=== PATIENT | male | born 1955 | race Caucasian/White ===

== ENCOUNTER 2016-08-02 10:00 | Inpatient (IN) | payer OTHER ==
--- NOTE | 2016-10-10 09:33 | HP ---
DATE OF ADMISSION: 10/19/2016 DATE OF DICTATION: 05/04/2016 BRIEF HISTORY: This is a 60-year-old gentleman who underwent a robotic prostatectomy up at [place]. Since that surgery, the patient developed an incisional hernia at the extraction site and had this repaired. He then developed a 2nd incisional hernia at the repair. Both hernia repairs were performed in the same year (2013; the prostatectomy was performed in 2013 as well). Both hernia repairs were done with mesh. In 2007, the patient underwent a partial toe amputation by Dr. Vogel. ALLERGIES: PLAQUENIL. MEDICATIONS: Celebrex, Cymbalta, Crestor, Nexium, hydrocodone. SOCIAL HISTORY: Patient does not smoke nor drink. PHYSICAL EXAMINATION: Lungs: Clear. Heart: Regular rate and rhythm. Abdomen: Soft, nontender, nondistended. He has an upper midline diastasis from xiphoid to umbilicus. He has a large, chronically incarcerated ventral incisional hernia. The skin deep to the hernia is definitely thickened and you can feel the mesh ridge deep to this. The actual defects of this hernia are not truly appreciated due to its chronically incarcerated nature. The patient clearly has multiple scars in a transverse direction from his port sites. I suspect, according to this patient's history, that he had his ventral hernia repairs done robotically as well. IMPRESSION/PLAN: Chronically incarcerated large, complex, recurrent ventral incisional hernia: This is a 60-year-old gentleman who had a robotic prostatectomy in 2013. That same year, the patient had 2 hernia repairs with mesh from an incision performed at the robotic prostatectomy. The first repair broke down shortly after it was performed and now he has a recurrence. He now is here for his 3rd time to undergo repair. The patient and his and myself had a long conversation regarding the various approaches. It is my feeling to attempt to approach this in an open fashion with a retrorectus repair and a component separation as needed. He understands that his risks of recurrence are going to be significantly higher, given the findings for diastasis and being chronically treated for rheumatoid arthritis (immunosuppression). He also understands the risks of bowel injury at the time of this surgery, given his 2 meshes that have been placed, and that, if that should occur, he would not have a permanent repair with a permanent piece of mesh. He understands and still wants to proceed. The indications, alternatives, complications were discussed. Questions answered. Will plan to obtain written consent the day of surgery. Prior to surgical intervention, the patient will see a plastic surgeon to discuss concomitant abdominoplasty. ANDREA EUCEDA M.D. [id number] CC: Edward Ramachandran MD [address] [place] [address].
[2016-10-16 17:14] VITALS: BMI 27.3
[2016-10-19] MEDS ORDERED: TAMSULOSIN HCL 0.4 MG CAP.ER.24H (FP) ONE (06:50)
[2016-10-19] MEDS ORDERED: LIDOCAINE 1%-EPI 1:100,000 30 ML MDV IJ ONE (07:25)
[2016-10-19] MEDS ORDERED: GUM MASTIC/STORAX/MSAL/ALCOHOL 1 DRP DROPSBTL MC ONE (07:25)
[2016-10-19] MEDS ORDERED: DEXAMETHASONE SOD PHOSPHATE/PF 10 MG/ML SDV ONE (07:28)
[2016-10-19] MEDS ORDERED: MIDAZOLAM HCL 2 MG/2 ML SINGLE DOSE VIAL ONE (07:29)
[2016-10-19] MEDS ORDERED: BUPIVACAINE HCL/PF 2.5 MG/ML - 30 ML VIAL IJ ONE (07:29)
[2016-10-19] MEDS ORDERED: ONDANSETRON 4 MG/2 ML VIAL IVPB PRN (07:48)
[2016-10-19] MEDS ORDERED: ACETAMINOPHEN 325 MG TABLET (FP) PO PRN ×2 (07:48→12:12)
[2016-10-19] MEDS ORDERED: OXYCODONE/APAP 5/325MG COMBO TABLET PO PRN ×2 (07:48)
[2016-10-19] MEDS ORDERED: HYDROmorphone HCL CARPU-JECT 1 MG/1 ML DISP.SYRIN IVPB PRN (07:48)
[2016-10-19] MEDS ORDERED: PROPOFOL 20 ML ONE ×2 (08:07)
[2016-10-19] MEDS ORDERED: ROCURONIUM BROMIDE 50 MG/5 ML VIAL ONE ×3 (08:07→09:49)
[2016-10-19] MEDS ORDERED: SUCCINYLCHOLINE CHLORIDE 200 MG/10 ML VIAL ONE (08:07)
[2016-10-19] MEDS ORDERED: ceFAZolin SODIUM 1 GM VIAL ONE (08:22)
[2016-10-19] MEDS ORDERED: HYDROmorphone HCL/PF 1 MG/ML VIAL (FOR PYXIS CHARGING ONLY) ONE ×3 (08:29→11:25)
[2016-10-19] MEDS ORDERED: LIDOCAINE 1%/EPI 1:100000 (20 ML MULTI DOSE VIAL) INF ONE ×2 (08:43→11:00)
[2016-10-19] MEDS ORDERED: DEXAMETHASONE SOD PHOSPHATE 4 MG/1 ML VIAL ONE ×3 (08:56→12:57)
[2016-10-19] MEDS ORDERED: PATIENT'S OWN MEDICATION (NON-FORMULARY) (Mirabegron [Myrbetriq] 25 MG) PO SCH (10:00)
[2016-10-19] MEDS ORDERED: NEOSTIGMINE METHYLSULFATE 0.5 MG/ML - 10 ML MDV ONE (11:10)
[2016-10-19] MEDS ORDERED: GLYCOPYRROLATE 0.2 MG/1 ML VIAL ONE (11:11)
[2016-10-19] MEDS ORDERED: ONDANSETRON 4 MG/2 ML VIAL ONE ×2 (11:46→12:57)
[2016-10-19] MEDS ORDERED: oxyCODONE HCL 5 MG TABLET PO PRN ×2 (12:16→12:17)
--- NOTE | 2016-10-19 12:16 | OP ---
DATE OF OPERATION: 10/19/2016 PREOPERATIVE DIAGNOSIS: Recurrent, complex, chronically incarcerated ventral incisional hernia. POSTOPERATIVE DIAGNOSIS: Recurrent, complex, chronically incarcerated ventral incisional hernia, history of rheumatoid arthritis, depressive disorder, prostate cancer, hyperlipidemia. PROCEDURE: Repair of complex, chronically-incarcerated ventral incisional hernia; total abdominal wall reconstruction; bilateral posterior component separation; repair of abdominal wall with mesh. SURGEON: Joanthan Euceda MD JUNIOR LINUX ADMINISTRATOR: Jose Luis Lee DO ANESTHESIA: Chika Minor MD (general). ESTIMATED BLOOD LOSS: Minimal. SPECIMEN: None. INDICATION FOR PROCEDURE: This is a 61-year-old gentleman who underwent a robotic prostatectomy at [place]. Following that surgery, he developed an incisional hernia which subsequently then repaired that same year with mesh. That hernia recurred , and he had it repaired a second time with mesh. He now has progressive bulge and pain at the hernia repair site. On physical examination, he has a large, chronically incarcerated ventral incisional hernia (recurrent). The patient is symptomatic from this and wants to have this repaired. He is also concerned about the previous scars that were left, and therefore, he has opted to undergo a plastic surgery evaluation abdominoplasty concurrently. Please refer to Dr. Sharma's dictation for the abdominoplasty and reconstruction. DESCRIPTION OF PROCEDURE: The patient was identified early this morning. He underwent a placement of under ultrasound guidance by Anesthesia. He was then brought to the operating room and a Villagomez catheter placed. The abdomen was then prepped and draped in the usual sterile fashion with ChloraPrep. Dr. Sharma performed the initial exposure for the abdominal wall through his abdominoplasty incisions. Once this exposure was obtained, I then came into the operating room. Patient had previous mesh in his abdominal wall at the level of the hernia. It is very scarred and thickened. Options here were to enter the abdominal cavity or stay totally extraperitoneal. Given his multitude of surgeries, I have elected to stay extraperitoneal. The fascia was then scored around what appeared to be the actual defect along the patient's right rectus. In doing so, the right rectus muscle identified and then off the posterior sheath/hernia sac. The retrorectus space was then developed superiorly and inferiorly the length of the actual defect. This was then taken out laterally to the perforating vessels. At this point, examining the large defect this gentleman has, I felt it necessary to perform a right lateral posterior-component separation. The transversus was off the junction of the rectus and obliques at the level just medial to the perforating vessels. This was done up toward the ribcage and superiorly and down to level beyond the anterior iliac crests. Medially, the inferiorly, the patient's bladder was then mobilized off the anterior sheath, and this was taken down to the level of the pubis. Superiorly, the patient has a large upper midline diastasis, and the midline was by over an inch and a half. The insertion points on the right were divided sharply up toward the xiphoid. Once this was completed on the patient's right side, a similar technique was used on the left side, and the fascia of the left rectus was scored in a similar fashion. The muscles split. The retrorectus space entered and lifted anteriorly. The posterior rectus sheath/hernia was then off the rectus muscle bluntly superiorly and inferiorly. The superior dissection was taken to the level of the costal margin. The inferior dissection was then taken down to the level of the AIS. Given the retraction of the rectus muscle on this side as well and the defect, he required a component separation on this side as well to allow placement of a very large piece of mesh. The transversus was released from the obliques and rectus junction just medial to the perforating vessels. The lateral space was then entered and developed bluntly. Superiorly, it was taken over the costal margin and inferiorly down to the level of the anterior iliac crest medially. The 2 spaces were joined from the left, and the midline loose attachment was divided with the cautery as well. The operative field now irrigated and noted to be hemostatic. The attenuated fascia in the midline was then reapproximated with a running locking 3-0 PDS suture. The defect measured, and a large Phasix 25 x 30 and a large 30 x 30 soft mesh was used for the operative repair. The Phasix was anchored to the soft mesh with interrupted 3-0 Vicryl sutures. The mesh placed into the retrorectus space and then placed and fanned out laterally, superiorly, medially, and inferiorly under direct vision. The mesh itself was then anchored with a multitude of absorbable ReliaTacks. Superolaterally, the mesh was placed over the costal margin on both sides, and the mesh was taken up in the midline to the level of the xiphoid. Inferiorly, the mesh was taken to the level of the pubis. In the midline superiorly and inferiorly, the mesh was anchored with an interrupted inverted No. 1 PDS suture. The mesh was then irrigated. The operative field examined, noted to be hemostatic. The midline fascia was then reapproximated with No. 1 PDS suture. At this point , total abdominal reconstruction was completed. The repair of the chronically incarcerated, recurrent ventral incisional hernia was done with mesh (again using a very large, essentially a 30 x 30 piece of soft mesh and a smaller 25 x 30 piece of Phasix). He also has his bilateral component separation which was required to repair this defect and have good adequate placement of mesh. Please refer to Dr. Sharma's dictation for completion of the abdominoplasty. JONATHAN EUCEDA M.D. [id number] cc: Edward Ramachandran MD; [address] [place] [address] Richard Sharma MD MTDD
[2016-10-19] MEDS ORDERED: diazePAM 5 MG TABLET ONE (12:24)
[2016-10-19] MEDS: traMADol HCL 50 MG TABLET PO SCH ×3 (12:25→23:20)
[2016-10-19] MEDS: ACETAMINOPHEN 325 MG TABLET (FP) PO SCH ×3 (12:25→23:21)
[2016-10-19] MEDS: diazePAM 5 MG TABLET PO PRN (12:25)
[2016-10-19] MEDS: CEFAZOLIN 1 GM/D5W 50 ML IVPB SCH ×3 (14:32→20:54)
[2016-10-19] MEDS: LACTATED RINGERS SOLUTION 1,000 ML IV SCH (14:32)
[2016-10-19] MEDS: CELECOXIB 200 MG CAPSULE PO SCH ×2 (14:32→21:44)
[2016-10-19] MEDS: DULoxetine HCL 60 MG CAPSULE.DR PO SCH ×2 (14:32→21:45)
[2016-10-19] MEDS: FOLIC ACID 1 MG TABLET (FP) PO SCH (14:33)
[2016-10-19] MEDS: TAMSULOSIN HCL 0.4 MG CAP.ER.24H (FP) PO SCH (14:33)
[2016-10-19] MEDS ORDERED: DULoxetine HCL 30 MG CAPSULE.DR (FP) PO ONE (21:21)
--- NOTE | 2016-10-19 21:23 | OP ---
DATE OF OPERATION: 10/19/2016 SURGEON: Marielle Sharma MD ASSEMBLER FINGER BUFFS: Eileen Tejeda PA-C PREOPERATIVE DIAGNOSIS: Abdominal wall herniation. POSTOPERATIVE DIAGNOSIS: Abdominal wall herniation. OPERATIVE PROCEDURE: Reconstruction of abdominal wall, post repair, recurrent abdominal hernia. OPERATIVE INDICATION: The patient is a 61-year-old man who was brought to the operating room by Dr. Jonathan Brantley for repair of a recurrent abdominal hernia with mesh. This is a combined dictation with Dr. Brantley for repair of and reconstruction of the abdominal wall after repair. The risks and benefits of surgical versus nonsurgical alternatives as well as the material complications of the procedure were described to the patient on multiple occasions preoperatively, including today in the holding area, where he was marked in the standing position with his and son in attendance. He understood the long, linear scar in the lower abdomen and possible deformity of the lower abdomen because of the herniation and repair. He understood the possibility of skin breakdown and likelihood because of the previous surgeries and significant scar deformity of the abdominal wall. He agreed to the planned procedure. OPERATIVE PROCEDURE IN DETAIL: The patient was taken to the operating room and, after induction of general anesthesia in supine position, both arms were extended and padded, Venodyne boots were placed, a Villagomez catheter was inserted by pa. The entire anterior abdominal wall from the nipple line down to the pubis and down to the table on both sides was prepped with ChloraPrep solution over the entire extent. After allowing prepping and draping in the usual fashion for abdominal hernia, attention was turned to the markings which were made in the standing position. Then, 1% local lidocaine anesthesia with 1:200,000 epinephrine was injected into the lower abdominal incision. At this point, an incision was made down through skin into the subcutaneous tissue, down through the subcutaneous tissue, down to the underlying abdominal wall in the lower abdomen for abdominoplasty. This was carried down to anterior rectus fascia and then superiorly along the anterior rectus fascia superiorly. Upon approaching 5 cm from the umbilical stalk, the hernia was encountered. This was dissected free on all sides of the abdomen. At this point, because of the deformity and large hernia in the central portion of the umbilicus, the umbilicus was circumscribed and dropped back. Dissection was then carried up over the anterior abdominal wall, superiorly over the fascia, up to the xiphoid, laterally to the rib margins on both sides, and laterally to the external oblique fascia. Hemostasis was meticulously obtained throughout this dissection. Perforators were clamped, ligated, and divided. Multiple ties were placed on the perforators to prevent bleeding. At this point, the dissection was turned over to Dr. Brantley, who will dictate the repair of the recurrent hernia under separate cover. Upon completion of the dissection and repair of the hernia by Dr. Brantley, the anterior abdominal wall was copiously irrigated with saline solution over its entire extent. Hemostasis was again obtained and the patient was placed into semi-Murphy sitting position to reconstruct the abdominal wall. The anterior abdominal tissue was then brought down over the repair and over the umbilicus, which had been dropped back and brought out through the rectus muscle and fascia. The skin and subcutaneous tissue was then carefully advanced and closed after conservative excision, but, because of the extensive previous surgeries before and multiple scars on the abdominal wall, a Spy intraoperative angiogram was carried out. The isocyanide green dye was injected into the intravenous system and an angiographic image of the anterior abdominal wall was carried out. Some ischemia was seen in the lower abdomen below where the resection would have occurred and the operation proceeded by removing small amounts of tissue and advancing the lateral portions inward. The anterior wall was then reconstructed down into its new anatomic position using 2-0 Vicryl sutures on the deep tissue, on Donald fascia; 3-0 PDS suture on the deep dermis; and 4-0 Biosyn in a subcuticular fashion. The umbilicus was then brought out into its new anatomic position and, because of the midline vertical defect and scar deformity from the area above and below the umbilicus previously, a block of scar was excised in a vertical fashion and then closed with an inverted T-shaped incision. A new intraoperative Spy angiogram was carried out, injecting another 5 mL of isocyanide green dye, which showed good blood flow to all areas of the abdominal wall, except for a small area on the lower T-portion of the wound. This did show blood flow and then was temporized with multiple sutures and the repair continued. All wounds were dressed sterilely with Mastisol, Steri-Strips, and a compressive dressing. The umbilicus was sutured in using 3-0 nylon sutures in interrupted fashion on the umbilicus, which was packed with Xeroform to recreate the umbilical stalk. The patient tolerated the procedure well. He was awakened, extubated, and transferred to the recovery room in an abdominal binder and went to the recovery room in satisfactory condition. MARIELLE SHARMA M.D. [id number]
[2016-10-19] MEDS: ROSUVASTATIN CA 40 MG TABLET PO SCH (21:44)
[2016-10-19] MEDS: PANTOPRAZOLE 40 MG TABLET (FP) PO SCH (21:45)
[2016-10-19] MEDS ORDERED: PATIENT'S OWN MEDICATION (NON-FORMULARY) (Naloxegol Oxalate [Movantik] 25 MG) PO SCH (22:00)
[2016-10-19] MEDS ORDERED: LEFLUNOMIDE 20 MG PO SCH (22:00)
[2016-10-19] MEDS: oxyCODONE HCL 5 MG TABLET PO PRN (22:05)
[2016-10-19] MEDS: TOLTERODINE TARTRATE LA 4 MG CAP.SR.24H (FP) PO SCH (22:06)
[2016-10-20] MEDS: CEFAZOLIN 1 GM/D5W 50 ML IVPB SCH (02:51)
[2016-10-20] MEDS: traMADol HCL 50 MG TABLET PO SCH ×3 (05:57→18:55)
[2016-10-20] MEDS: ACETAMINOPHEN 325 MG TABLET (FP) PO SCH ×3 (05:57→18:54)
[2016-10-20] MEDS: LACTATED RINGERS SOLUTION 1,000 ML IV SCH (08:14)
[2016-10-20] MEDS: TAMSULOSIN HCL 0.4 MG CAP.ER.24H (FP) PO SCH (08:14)
[2016-10-20] MEDS ORDERED: ENOXAPARIN NA (PORCINE) 40 MG/0.4 ML DISP.SYRIN SQ ONE (09:00)
--- NOTE | 2016-10-20 09:27 | PN ---
Progress Note (short form) - Note Progress Note: Patient is POD #1 s/p abdominal hernia repair and recosntruction with mesh by Dr. Brantley and abdominoplasty by Dr. Sharma. Patient was seen by ALLY Cabrera and me by bedside. Patient states he had a very hard time sleeping last night because of positioning, but he is tolerating. Patient's pain is controlled with some discomfort with movement. Tolerating po with no problems. Villagomez was d/c this morning and he has been oob since this morning as tolerated. Denies fever, chills, nausea/vomiting. On PE, he is sitting oob in chair, comfortable. no apparent distress. A&ox3. cooperative and interactive. Abodminal binder was removed and patient tolerated well. Incision is with steri strips, c/d/i with no erythema. no s/s of infection. MIRANDA drains are holding suction with sanguinous fluid. A/P: POD #1 s/p abdominal hernia repair and recosntruction with mesh by Dr. Brantley and abdominoplasty by Dr. Sharma. Diet: Regular. encourage fluids. OOB as toelrated Keep hunched when walking. keep head of bed elevated and knees bent when in bed. Appreciate anethesia's help with pain management. patient will be d/c on po pain meds. PPX: lovenox continue. MIRANDA drain - milk/empty q8hrs Patient is scheduled to be d/c tomorrow.
[2016-10-20] MEDS: CELECOXIB 200 MG CAPSULE PO SCH ×2 (09:48→21:17)
[2016-10-20] MEDS: oxyCODONE HCL 5 MG TABLET PO PRN (09:48)
[2016-10-20] MEDS: FOLIC ACID 1 MG TABLET (FP) PO SCH (09:48)
[2016-10-20] MEDS: DULoxetine HCL 30 MG CAPSULE.DR (FP) PO SCH ×2 (09:49→21:17)
--- NOTE | 2016-10-20 13:52 | PN ---
Progress Note (short form) - Note Progress Note: Patient doing well POD 1 s/p ventral hernia repair with mesh. Pain is well controlled. Patient is ambulating, eating and using his incentive spirometery. Continue current care.
[2016-10-20] MEDS: diazePAM 5 MG TABLET PO PRN (20:39)
[2016-10-20] MEDS ORDERED: PT OWN MED DRAWER 7, Y5N ONE (21:15)
[2016-10-20] MEDS: ROSUVASTATIN CA 40 MG TABLET PO SCH (21:17)
[2016-10-20] MEDS: TOLTERODINE TARTRATE LA 4 MG CAP.SR.24H (FP) PO SCH (21:18)
[2016-10-20] MEDS: PANTOPRAZOLE 40 MG TABLET (FP) PO SCH (21:18)
[2016-10-20] MEDS ORDERED: LEFLUNOMIDE 10 MG TABLET PO SCH (22:00)
[2016-10-21] MEDS: traMADol HCL 50 MG TABLET PO SCH ×3 (05:53→12:12)
[2016-10-21] MEDS: ACETAMINOPHEN 325 MG TABLET (FP) PO SCH ×3 (05:53→12:12)
[2016-10-21 06:25] VITALS: BP 138/94; PULSE 93; TEMP 98.7
[2016-10-21] MEDS: TAMSULOSIN HCL 0.4 MG CAP.ER.24H (FP) PO SCH (08:30)
[2016-10-21] MEDS: CELECOXIB 200 MG CAPSULE PO SCH (09:48)
[2016-10-21] MEDS: FOLIC ACID 1 MG TABLET (FP) PO SCH (09:48)
[2016-10-21] MEDS: DULoxetine HCL 30 MG CAPSULE.DR (FP) PO SCH (09:52)
[2016-10-21] MEDS ORDERED: ENOXAPARIN NA (PORCINE) 40 MG/0.4 ML DISP.SYRIN SQ SCH (10:00)
--- NOTE | 2016-10-24 16:17 | PATH ---
Surgical Pathology Report Patient Name: FORD BANERJEE Med. Rec. #: [id number] /Age/Gender: 1955 (Age: 61) / M Account: [id number] Location: [facility] MED-SURG Taken: 10/19/2016 Received: 10/19/2016 Reported: 10/24/2016 Physicians: Teo Sharma Specimen(s) Received ABDOMINAL SKIN AND TISSUE Clinical History Generalized abdominal pain, ventral hernia Final Diagnosis ABDOMINAL SKIN AND TISSUE, ABDOMINAL WALL RECONSTRUCTION: SKIN AND ADIPOSE TISSUE WITH NO PATHOLOGIC FINDINGS. Electronically Signed Betty Sy M.D. Gross Description Received in formalin labeled "abdominal skin and tissue," is an 850 g, 26.0 x 17.0 x 4.0 cm aggregate of multiple irregular portions of skin with underlying yellow, lobulated adipose tissue. No discrete lesions are identified. Break Off Worker sections are submitted in one cassette. /10/20/2016 [facility] [place]/2016
== END 2016-10-21 14:10 | disposition home or self-care (01) | DRG 355 ==
LOC: FM/S 10-19 06:10
PROVIDERS: ADMIT Surgery; ATTEND Surgery
PROC: 0WUF0JZ Supplement Abdominal Wall with Synthetic Substitute, Open Approach (ICD-10-PCS; principal; 2016-10-19 08:34)
PROC: 0WQF0ZZ Repair Abdominal Wall, Open Approach (ICD-10-PCS; 2016-10-19 08:34)
DX: K43.2 Incisional hernia without obstruction or gangrene (principal); K21.9 Gastro-esophageal reflux disease without esophagitis; E78.5 Hyperlipidemia, unspecified
CPT/HCPCS: 88302-TC; 94010; 94760